=== PATIENT | male | born 1965 | race Two or more races ===

== ENCOUNTER 2021-01-31 20:21 | Emergency (ER) | payer SELFPAY ==
[~2021-01-31] VITALS: Ht 162.6 cm; Wt 70.0 kg
[2021-01-31] MEDS ORDERED: IBUPROFEN 600MG TABLET PO STA (21:03)
[2021-01-31 21:48] LABS: CHLORIDE 106 mEq/L (98-107)
[2021-01-31 21:57] LABS: BASOPHILS % 0.7 % (0.0-2.0); EOSINOPHILS % 0.8 % (0.0-5.0); HEMOGLOBIN. 16.7 g/dL (14.0-18.0); LYMPHOCYTES % 20.8 % (20.0-50.0); MEAN CORPUSCULAR HEMOGLOBIN 34.1 pg (28.0-32.0); MEAN CORPUSCULAR VOLUME 100.2 fL (80.0-94.0); MEAN PLATELET VOLUME 8.3 fl (7.4-10.4); MONOCYTES % 9.6 % (2.0-8.0); NEUTROPHILS % 68.1 % (40.0-76.0); PLATELET 258 x1000/uL (130-400); RED BLOOD CELL COUNT 4.89 mill/uL (4.7-6.1); RED CELL DISTRIBUTION WIDTH 13.2 % (11.6-14.6)
[2021-02-01 01:10] VITALS: BP 135/75
== END 2021-02-01 01:10 | disposition home or self-care (01) ==
LOC: EDBD 20:21 → ER 20:21
DX: R07.89 Other chest pain (principal); F10.229 Alcohol dependence with intoxication, unspecified; Y90.0 Blood alcohol level of less than 20 mg/100 ml; F17.290 Nicotine dependence, other tobacco product, uncomplicated
CPT/HCPCS: 36415; 71045; 80053; 84484; 85025; 93005; 99285